=== PATIENT | female | born 1940 | race Caucasian/White ===

== ENCOUNTER 2016-11-02 09:48 | Emergency (ER) | payer BC ==
[~2016-11-02] VITALS: Ht 149.9 cm; Wt 70.3 kg
[2016-11-02 11:17] LABS: Albumin 2.9 g/dL (3.4-5.0); BUN/Creatinine Ratio 15.9; Bilirubin, Total 0.5 mg/dL (0.2-1.0); Calcium 8.5 mg/dL (8.5-10.1); Potassium 3.5 mmol/L (3.5-5.1); Total Protein 6.6 g/dL (6.4-8.2)
[2016-11-02] MEDS ORDERED: ONDANSETRON HCL 4 MG/2 ML VIAL IV ONE (11:30)
[2016-11-02] MEDS ORDERED: MORPHINE SULFATE 4 MG/ML SYRG IV ONE (11:30)
[2016-11-02 11:49] LABS: Hematocrit 38.3 % (36.0-46.0); Hemoglobin 12.6 g/dL (12.2-16.2); Mean Corpuscular Hemoglobin 29.9 pg (28.0-32.0); Mean Corpuscular Hgb Conc. 32.7 g/dL (32.0-36.0); Mean Corpuscular Volume 91.4 fL (80.0-100.0); Mean Platelet Volume 7.7 fL (7.4-10.4); Platelet Count (auto) 543 10^3/uL (140-450); Red Cell Distribution Width 13.4 % (11.6-16.0); SUSPECT VIEW TRANSMISSION; White Blood Cell 24.6 10^3/uL (4.4-10.8)
[2016-11-02 12:18] LABS: Metamyelocytes % 0; Myelocytes % 0; Promyelocytes % 0; Reactive Lymphocytes 0
[2016-11-02 13:03] LABS: Platelet Estimate Increased; RBC Morphology Normal
[2016-11-02 13:04] LABS: Hypersegmented Neutrophils Present
[2016-11-02 13:15] VITALS: BP 121/62
== END 2016-11-02 14:23 | disposition home or self-care (01) ==
LOC: ER 09:55
DX: M54.9 Dorsalgia, unspecified (principal); Z88.1 Allergy status to other antibiotic agents; Z79.899 Other long term (current) drug therapy; I10 Essential (primary) hypertension; E07.9 Disorder of thyroid, unspecified
CPT/HCPCS: 36415; 80053; 84484; 85007; 85027; 93005; 94761; 96374; 96375; 99285; J2270; J2405